=== PATIENT | male | born 1960 | race Caucasian/White ===

== ENCOUNTER → 2019-06-04 | Outpatient (CLI) | payer OTHER ==
[2019-06-04 11:03] LABS: HCT 40.7 % (39.0-53.0); HGB 13.9 gm/dL (13.0-17.5); MCH 31.9 pg (25.0-35.0); MCHC 34.1 g/dL (31.0-37.0); MCV 93.4 fL (80.0-100.0); Platelet Count 347 k/uL (150-450); RBC 4.36 m/uL (4.30-5.90); RDW 12.8 % (11.5-15.5); WBC 8.2 k/uL (3.8-10.6)
[2019-06-04 11:04] LABS: Appearance,Urine Clear (Clear); Bilirubin,Urine Negative (Negative); Blood,Urine Negative (Negative); Color,Urine Yellow; Glucose,Urine (UA) Negative (Negative); Ketones,Urine Negative (Negative); Leukocyte Esterase,Urine Negative (Negative); Nitrite,Urine Negative (Negative); Protein,Urine Negative (Negative); Specific Gravity,Urine 1.015 (1.001-1.035); Urobilinogen,Urine <2.0 mg/dL (<2.0)
[2019-06-04 11:10] LABS: INR 0.9 (<1.2); Partial Thromboplastin Time 24.7 sec (22.0-30.0); Prothrombin Time 9.6 sec (9.0-12.0)
[2019-06-04 11:11] LABS: ALT 22 U/L (21-72); AST 21 U/L (17-59); African American GFR (CKD) >90 (>60 ml/min/1.73 sqM); Albumin 3.8 g/dL (3.5-5.0); Alkaline Phosphatase 84 U/L (38-126); Anion Gap 8 mmol/L; Blood Urea Nitrogen 13 mg/dL (9-20); Calcium 9.1 mg/dL (8.4-10.2); Carbon Dioxide 22 mmol/L (22-30); Chloride 111 mmol/L (98-107); Glucose 103 mg/dL (74-99); Potassium 4.3 mmol/L (3.5-5.1); Sodium 141 mmol/L (137-145); Total Bilirubin 0.5 mg/dL (0.2-1.3); Total Protein 6.9 g/dL (6.3-8.2)
== END ==
LOC: LABPAT 10:17
PROVIDERS: ATTEND Orthopaedic Surgery
DX: Z01.818 Encounter for other preprocedural examination (principal); Z01.812 Encounter for preprocedural laboratory examination; M17.12 Unilateral primary osteoarthritis, left knee
CPT/HCPCS: 80053; 81003; 85027; 85610; 85730; 87070; 93005

== ENCOUNTER 2019-06-15 07:37 | Observation (INO) | payer OTHER ==
[2019-06-07 12:28] VITALS: BMI 42.3
[~2019-06-15 07:37] MED LIST: ACETAMINOPHEN TAB 500 MG TAB PO ONE; DEXAMETHASONE SOD PHOSPHATE 10 MG/ML 1 ML VIAL IV ONE; MELOXICAM 7.5 MG TAB PO ONE; MIDAZOLAM 2 MG/2 ML VIAL IV PRN; ONDANSETRON 4 MG/2 ML VIAL IVP ONE; ROPIVACAINE 246.25 MG, EPINEPHrine 0.5 MG, KETOROLAC 30 MG, cloNIDine HCL/PF 80 MCG, WA... MISCELLANE ONE; SCOPOLAMINE 1.5MG/72HR PATCH TRANSDERM ONE; TRANEXAMIC ACID 1,000 MG in SODIUM CHLORIDE 0.9% 100 ML IVPB ONE; ceFAZolin 3 GM in SODIUM CHLORIDE 0.9% 100 ML IVPB ONE
[2019-06-15] MEDS: LACTATED RINGERS 1,000 ML IV SCH (10:12)
[2019-06-15] MEDS ORDERED: LIDOCAINE 1% INJ 10MG/ML (20 ML MDV) ONE (12:04)
[2019-06-15] MEDS ORDERED: HYDROmorphone (PF) 1 MG/ML ONE (12:04)
[2019-06-15] MEDS ORDERED: TRANEXAMIC ACID 1,000 MG/10 ML VIAL ONE (12:04)
[2019-06-15] MEDS ORDERED: SODIUM CHLORIDE 0.9% 100 ML BAG ONE (12:04)
[2019-06-15] MEDS ORDERED: PROPOFOL 10 MG/ML 20 ML VIAL IV ONE (12:04)
[2019-06-15] MEDS ORDERED: ROCURONIUM BROMIDE 10 MG/ML 10 ML VIAL IV ONE (12:04)
[2019-06-15] MEDS ORDERED: SUCCINYLCHOLINE CHLORIDE 100 MG/5 ML SYR IV ONE (12:04)
[2019-06-15] MEDS ORDERED: NEOSTIGMINE 1 MG/ML 10 ML VIAL ONE (12:04)
[2019-06-15] MEDS ORDERED: MIDAZOLAM 2 MG/2 ML VIAL ONE (12:04)
[2019-06-15] MEDS ORDERED: GLYCOPYRROLATE 0.2 MG/ML 2 ML VIAL ONE (12:04)
[2019-06-15] MEDS ORDERED: fentaNYL (PF) 50 MCG/ML 2 ML AMP ONE (12:04)
[2019-06-15] MEDS ORDERED: ceFAZolin 3,000 MG in SODIUM CHLORIDE 0.9% IRRIGATIO 3,000 ML IRRIGATION ONE (12:39)
--- NOTE | 2019-06-15 13:00 | P.ANPRN ---
Procedure Note - Anesthesia - Nerve Block Performed Left Adductor Canal Date of Procedure: 06/15/19 Procedure Start Time: 10:30 Procedure Stop Time: 11:04 Location of Patient Procedure: PreOp Indication: Acute Post-Operative Pain, Requested by physician (Musa Angeles) Sedation Type: Sedate with meaningful contact maintained Preparation: Sterile Prep, Sterile Dressing Position: Supine Catheter: Indwelling Needle Types: Pajunk Needle Gauge: 21 Technique: Ultrasound Injectate: 0.5% Ropivacaine (see comment for volume) (20cc) Blood Aspirated: No Pain Paresthesia on Injection Noted: No Resistance on Injection: Normal Events: Uneventful and Well Tolerated
[2019-06-15] MEDS ORDERED: HYDROmorphone 1 MG/ML 1 ML SYRINGE IVP PRN (13:35)
[2019-06-15] MEDS ORDERED: hydrOXYzine PAMOATE 25 MG CAP PO PRN (13:35)
[2019-06-15] MEDS ORDERED: NALOXONE 0.4 MG/ML 1 ML VIAL IV PRN (13:35)
[2019-06-15] MEDS ORDERED: HYDROmorphone 0.5 MG/0.5 ML SYRINGE IVP PRN (13:35)
[2019-06-15] MEDS ORDERED: DIAZEPAM 5 MG TAB PO PRN (13:35)
[2019-06-15] MEDS ORDERED: NA PHOS,M-B/NA PHOS,DI-BA 133 ML ENEMA RECTAL PRN (13:35)
[2019-06-15] MEDS ORDERED: MAGNESIUM HYDROXIDE 2,400 MG/10 ML CUP PO PRN (13:35)
[2019-06-15] MEDS ORDERED: BISACODYL 10 MG SUPP RECTAL PRN (13:35)
[2019-06-15] MEDS ORDERED: ONDANSETRON 4 MG/2 ML VIAL IVP PRN (13:35)
[2019-06-15] MEDS ORDERED: LACTATED RINGERS 1,000 ML IV ONE ×2 (13:40→18:10)
--- NOTE | 2019-06-15 14:25 | P.OP ---
Date of Procedure: 06/15/19 Preoperative Diagnosis: Severe osteoarthritis left knee Postoperative Diagnosis: Severe osteoarthritis left knee Procedure(s) Performed: Left total knee arthroplasty Implants: Sánchez and Nephew Journey II CR Oxinium cruciate retaining femoral component size 7, left Sánchez & Nephew Journey left nonporous tibial baseplate size 7 Sánchez & Nephew Journey II, XLPE CR articular insert, size 10 mm, Size 7-8 left Sánchez & Nephew Journey BCS resurfacing oval patellar component, 38 mm All components were cemented using Palacos R bone cement.. The articulation is Oxinium on polyethylene. Anesthesia: GETA Surgeon: Musa Angeles Client Server Developer #1: Denise Landa Estimated Blood Loss (ml): 50 Pathology: other (Bone and cartilage) Condition: stable Disposition: PACU Indications for Procedure: After failure of conservative treatment we discussed the surgical and nonsurgical treatment options at length. Patient wishes to proceed with a total knee arthroplasty. Complications specific to this procedure were discussed at length, including but not limited to infection, bleeding, stiffness, and nerve injury. Patient is aware of all these complications and informed consent was obtained Operative Findings: The operative findings are consistent with severe osteoarthritis of the left knee Description of Procedure: Patient was seen in the preoperative area consent was reviewed and operative site was marked with a skin marker. An adductor canal pain catheter was placed by anesthesia in the preoperative area. Patient was then brought to the operating room and given preoperative antibiotics intravenously. A general anesthetic was administered by the anesthesia department. A tourniquet was placed on the upper thigh and the lower extremity was prepped and draped in usual sterile fashion. A gram of transexamic acid was given. A universal timeout was then performed which confirmed the patient's name, surgical site, ALLERGIES, and consent. The lower extremity was then exsanguinated and tourniquet was inflated to 250 mmHg. A standard and anterior midline approach to the knee was performed. The skin and subcutaneous tissue was dissected down to the patellar tendon. A medial parapatellar arthrotomy was then performed. The knee was then extended, the patellar was everted, and the knee was again flexed. Anterior horns of both menisci were excised, and a release was performed to the posterior medial aspect of the knee. On gross visual inspection, there was complete loss of articular cartilage in the medial and patellofemoral joint spaces. There was also significant cartilage damage in the lateral compartment. There were multiple periarticular osteophytes which were then removed with a Ronguer. The femoral canal was then opened with the appropriate drill, and the intramedullary femoral cutting guide was then placed and set for 5 of valgus. The distal femoral cutting block was then pinned in place, and the distal femur was then cut. The cutting block was then removed and the cut was checked for flatness. Next, the sizing guide was then placed and set for 3 external rotation based off of the epicondylar axis and Whitesides line. After the femur was sized, the appropriate 4-in-1 cutting block was then pinned in place. The anterior condyles were cut without notching. The posterior and chamfer cuts were performed while protecting the collateral ligaments. The cutting block was then removed, and the femoral canal was plugged with autologous bone. Attention was then directed to the tibia. The remaining ACL was removed with a Ronguer, and the tibia was then gently subluxed forward with a large bent knee retractor. Any remaining menisci was excised. The posterior lateral corner was cauterized in order to cauterize the lateral geniculate artery. The extra medullary tibial cutting guide was then placed, set for the appropriate rotation, slope, and depth of resection. The proximal tibia cutting guide was then pinned in place. Proximal tibia was then cut and sized. Next trials were then placed with the appropriate-sized insert. The knee was able to fully extend and flex to 130 and was stable throughout all range of motion. The knee was then extended, patella everted. Patella was then measured, and then using an osteotomy guide, the patella was cut at the appropriate level. The patella was then measured and drilled and the patella trial was then placed. The knee was then taken through range of motion with the patella trial and the patella tracked normally. The knee was then extended patella trial was then removed and the patella was everted. Knee was then flexed and lug holes were drilled through the femoral trial and the femoral trial was then removed. The tibial was then exposed, and the tibial broach guide was then pinned in place after it was set for the appropriate rotation to allow for the most coverage without overhang. The tibia was then reamed and broached. The cut surfaces of bone were then irrigated with pulsatile lavage. The posterior structures were injected with the ropivacaine solution. The knee was also irrigated with Irrisept solution. The components were then opened, the cement was mixed, and the components were then cemented in place. The cement was allowed to harden with the knee in full extension. While the cement was hardening, the remaining soft tissues were then injected with a ropivacaine solution, which consisted of 246.25 mg of ropivacaine, 0.5 mg of epinephrine, 30 mg of Toradol, 80 g of clonidine, and 48.45 mL of sterile water, for a total of 100 mL of fluid injected. After the cemented hardened. The tourniquet was released, and hemostasis was obtained. A second gram of transexamic acid was given. The knee was again irrigated. The knee was again taken through range of motion and found to be stable throughout all range of motion of 0-130, and the patella tracked normally. The fascia was then closed with #2 strata fix suture. The subcutaneous tissue was closed with 3-0 Vicryl and 3-0 strata fix. Dermabond glue was used for the skin and placed with the knee in flexion. The patient was placed in a sterile silver dressing. Patient was then transferred to recovery room in stable condition. The budget assistant NOEMI Ashford was required due the complexity surgery and the need for a skilled secretary administrative assistant. She assisted in positioning, draping, retraction, and closure of the wound.
[2019-06-15] MEDS: HYDROmorphone 0.5 MG/0.5 ML SYRINGE IVP PRN ×5 (14:28→21:41)
[2019-06-15] MEDS ORDERED: ROPIVACAINE 0.2%-NS ON-Q PUMP 1,090 MG, EMPTY PAIN BALL 1 EACH MISCELLANE PRN (14:42)
--- NOTE | 2019-06-15 14:43 | XR ---
Limited left knee HISTORY: Status post left knee arthroplasty 2 views of left knee There is overlying artifact. Patient is status post left knee arthroplasty. There is anatomic alignme nt. Lucency in the soft tissues is compatible with postop state. Small ossific densities about the kn ee are likely postoperative. IMPRESSION: Orthopedic follow-up.
[2019-06-15] MEDS: SODIUM CHLORIDE 0.9% 1,000 ML IV SCH (18:12)
[2019-06-15] MEDS ORDERED: CLOTRIMAZOLE 1% CREAM 15 GM TUBE TOPICAL PRN (19:24)
[2019-06-15] MEDS ORDERED: amLODIPine 5 MG TAB PO PRN (19:24)
[2019-06-15] MEDS ORDERED: CROMOLYN 4% BOTH EYES PRN (19:24)
[2019-06-15] MEDS ORDERED: FLUTICASONE 50MCG/SPRAY NASAL 16GM EA NOSTRIL PRN (19:24)
[2019-06-15] MEDS: ceFAZolin 3 GM in SODIUM CHLORIDE 0.9% 100 ML IVPB SCH (19:40)
[2019-06-15] MEDS: oxyCODONE-APAP 10-325MG 1 EACH TAB PO PRN (19:47)
[2019-06-15] MEDS ORDERED: SENNOSIDES-DOCUSATE SODIUM 1 EACH TAB PO SCH (21:00)
[2019-06-15] MEDS: GABAPENTIN 400 MG CAP PO SCH (21:41)
--- NOTE | 2019-06-16 00:30 | P.CONS ---
History of Present Illness - Reason for Consult Consult date: 06/16/19 medical management postoperatively Requesting physician: Musa Angeles - Chief Complaint scheduled left total knee arthroplasty - History of Present Illness 58-year-old male with past medical history of hypertension prediabetes obstructive sleep apnea. Patient presented to the hospital for scheduled left total knee arthroplasty due to severe degenerative arthritis failed conservative therapy. Patient tolerated procedure well he seen in the postoperative day 0. No observed immediate postoperative complications. Patient tolerated by mouth intake. Passing gases. He is able to move his left lower extremity with minimal amount of pain. Denies any fevers chills any coughing or trouble breathing or chest pain. Patient passing urine no issues. Patient is very pleasant he was counseled regarding pursuing treatment of obstructive sleep apnea. Patient used to be on metformin in the past for diabetes however he stopped that since he lost weight. Patient agreeable to start insulin sliding scale while hospitalized to optimize blood sugar control which will help with wound healing Review of Systems Pertinent positives as noted in HPI. All other systems were reviewed and are negative Past Medical History Past Medical History: Asthma, Diabetes Mellitus, Hypertension, Musculoskeletal Disorder, Osteoarthritis (OA), Sleep Apnea/CPAP/BIPAP Additional Past Medical History / Comment(s): BLOOD CLOT RT ARM AFTER A BEE STING 2017, TOOK WARFARIN FOR 1 1/2 WEEKS. "PRE-DIABETIC" 2008 WHEN AT [facility]. LT KNEE PAIN; 3 TORN TENDONS IN LT SHOULDER; JOINTS SWOLLEN, POSS RA. CHRONIC BACK PAIN. USED CPAP IN PAST. History of Any Multi-Drug Resistant Organisms: None Reported Past Surgical History: Back Surgery, Tonsillectomy Additional Past Surgical History / Comment(s): CERVICAL FUSION, LUMBAR PAIN; PAIN INJECTIONS IN BACK, NEXT ON 06/11/19. COLONOSCOPY. Past Anesthesia/Blood Transfusion Reactions: No Reported Reaction Smoking Status: Former smoker - Past Family History Mother Family Medical History: No Reported History Medications and Allergies Home Medications Medication Instructions Recorded Confirmed Type Albuterol Inhaler [Ventolin Hfa 1 - 2 puff INHALATION RT-Q6H PRN 06/07/19 06/07/19 History Inhaler] Celecoxib [CeleBREX] 200 mg PO DAILY 06/07/19 06/07/19 History Cholecalciferol [Vitamin D3 (25 1,000 unit PO DAILY 06/07/19 06/07/19 History Mcg = 1000 Iu)] Chromolyn Sodium Opthal 4% 1 drop BOTH EYES BID PRN 06/07/19 History Clotrimazole Cream [Lotrimin Cream] 1 applic TOPICAL BID PRN 06/07/19 06/07/19 History EPINEPHrine (Auto Inject) [Epipen] 0.3 mg IM ONCE PRN 06/07/19 06/15/19 History Fluticasone Nasal [place] [Flonase 2 spr EA NOSTRIL BID PRN 06/07/19 06/07/19 History Nasal [place]] Gabapentin [Neurontin] 1,200 mg PO TID 06/07/19 06/07/19 History Loratadine [Claritin] 10 mg PO DAILY 06/07/19 06/07/19 History Losartan Potassium [Cozaar] 100 mg PO DAILY 06/07/19 06/07/19 History Vitamin B Complex 1 each PO DAILY 06/07/19 06/07/19 History amLODIPine [Norvasc] 5 mg PO HS PRN 06/07/19 06/07/19 History oxyCODONE-APAP 10-325MG [Percocet 1 tab PO BID PRN 06/07/19 06/07/19 History 10-325 mg] Allergies Allergy/AdvReac Type Severity Reaction Status Date / Time Penicillins Allergy Rash/Hives Verified 06/15/19 09:59 Physical Exam Vitals: Vital Signs Temp Pulse Pulse Resp BP Pulse Ox 06/15/19 18:09 82 16 132/75 97 06/15/19 17:46 82 16 119/55 97 06/15/19 17:30 78 16 128/69 97 06/15/19 17:00 78 16 132/59 97 06/15/19 16:45 76 16 114/69 97 06/15/19 16:33 76 16 127/71 95 06/15/19 16:15 83 16 116/67 95 06/15/19 16:00 79 16 108/70 95 06/15/19 15:45 80 16 124/77 95 06/15/19 15:31 76 16 153/78 95 06/15/19 15:15 74 16 130/60 95 06/15/19 15:03 74 16 135/70 95 06/15/19 14:48 83 16 140/72 95 06/15/19 14:32 74 16 138/74 95 06/15/19 14:16 97.4 F L 88 16 114/62 95 06/15/19 11:05 70 17 111/55 98 06/15/19 10:03 96.9 F L 72 17 142/62 98 Intake and Output 06/15/19 06/15/19 06/15/19 06:59 14:59 22:59 Intake Total 2050 Output Total 50 Balance 2000 Intake: IV 2050 Output: Estimated Blood Loss 50 Other: Weight 120.4 kg Constitutional: No acute distress, conversant, pleasant Eyes: Anicteric sclerae, moist conjunctiva, no lid-lag Pupils equal round reactive to light ENMT: NC/AT Oropharynx clear, no erythema, orexudates Neck: Supple, FROM, no masses, or JVD No carotid bruits No thyromegaly Lungs: Clear to auscultation Clear to percussion Normal respiratory effort, no accessory muscle use Cardiovascular: Heart regular in rate and rhythm, No murmurs, gallops, or rubs No peripheral edema Abdominal: Soft Nontender, no guarding, rebound or rigidity Abdomen moving with respiration Normoactive bowel sounds No hepatomegaly, No splenomegaly No palpable mass No abdominal wall hernia noted Skin: Normal temperature, tone, texture, turgor No induration No subcutaneous nodules No rash, lesions No ulcers Extremities: surgical dressing over the left lower extremity, seems clean and intact and dry. Pain pump in placeFor nerve block No digital cyanosis No clubbing Pedal pulses intact and symmetrical Radial pulses intact and symmetrical No calf tenderness Psychiatric: Alert and oriented to person, place and time Appropriate affect fair judgement Neuro Muscles Strength 5/5 in all 4 extremities my limited exam over the left lower extremity due to recent surgery Sensation to light touch grossly present throughout Cranial nerves II-XII grossly intact No focal sensory deficits Lymphatics: no palpable cervical or supraclavicular , or inguinal lymph nodes Assessment and Plan Assessment: 58-year-old male with history of obstructive sleep apnea, hypertension, prediabetes. Patient admitted for scheduled left total knee arthroplasty tolerated procedure well patient seen in the postoperative day 0. No observed immediate postoperative complications medicine was consulted for management of his hypertension and diabetes. Plan: degenerative joint disease or osteoarthritis of the left knee status post left total knee arthroplasty postoperative day 0 Pain control and DVT prophylaxis management per orthopedics Prediabetes, insulin sliding scale Hypertension, continue home blood pressure meds Obstructive sleep apnea, encouraged patient to pursue treatment as an outpatient currently he reports stopping treatment since 2010 Follow-up morning labs CBC and basic metabolic panel Thank you for allowing us to participate in the care of this patient. Do not hesitate to contact us with questions. Someone can be reached from the [facility] hospitalist group at all hours of the day at [phone].
[2019-06-16] MEDS: HYDROmorphone 0.5 MG/0.5 ML SYRINGE IVP PRN ×2 (01:09→05:00)
[2019-06-16] MEDS: oxyCODONE-APAP 10-325MG 1 EACH TAB PO PRN ×3 (02:01→12:54)
[2019-06-16] MEDS: SODIUM CHLORIDE 0.9% 1,000 ML IV SCH (04:43)
[2019-06-16] MEDS: ceFAZolin 3 GM in SODIUM CHLORIDE 0.9% 100 ML IVPB SCH (04:50)
[2019-06-16 07:31] LABS: Glucose,Whole Blood 107 mg/dL (75-99)
[2019-06-16] MEDS: INSULIN ASPART (NovoLOG) 100 UNIT/ML VIAL SQ SCH ×2 (07:38→12:49)
[2019-06-16] MEDS: GABAPENTIN 400 MG CAP PO SCH ×2 (07:42→15:05)
[2019-06-16 07:49] LABS: Basophils % (A) 0 %; Eosinophils # (A) 0.1 k/uL (0-0.7); Eosinophils % (A) 1 %; HCT 42.4 % (39.0-53.0); HGB 13.4 gm/dL (13.0-17.5); Lymphocytes # (A) 1.7 k/uL (1.0-4.8); Lymphocytes % (A) 13 %; MCH 30.2 pg (25.0-35.0); MCHC 31.5 g/dL (31.0-37.0); MCV 95.8 fL (80.0-100.0); Mean Platelet Volume 6.2; Monocytes % (A) 8 %; Neutrophils # (A) 9.8 k/uL (1.3-7.7); Neutrophils % (A) 76 %; Platelet Count 320 k/uL (150-450); RBC 4.42 m/uL (4.30-5.90); RDW 12.9 % (11.5-15.5); WBC 12.8 k/uL (3.8-10.6)
[2019-06-16 07:54] LABS: African American GFR (CKD) >90 (>60 ml/min/1.73 sqM); Anion Gap 11 mmol/L; Blood Urea Nitrogen 14 mg/dL (9-20); Calcium 8.6 mg/dL (8.4-10.2); Carbon Dioxide 21 mmol/L (22-30); Chloride 107 mmol/L (98-107); Glucose 102 mg/dL (74-99); Potassium 4.3 mmol/L (3.5-5.1); Sodium 139 mmol/L (137-145)
[2019-06-16 08:36] VITALS: PULSE 81
[2019-06-16] MEDS ORDERED: APIXABAN 2.5 MG TABLET PO SCH (09:00)
[2019-06-16] MEDS ORDERED: LORATADINE 10 MG TAB PO SCH (09:00)
[2019-06-16] MEDS ORDERED: LOSARTAN 50 MG TAB PO SCH (09:00)
--- NOTE | 2019-06-16 09:03 | P.PN ---
Progress Note - Text Progress Note Date: 06/16/19 Postoperative day # 1 status post total knee arthroplasty, under spinal anesthesia, and adductor canal catheter placed for postoperative analgesia, currently at ropivacaine 0.2% 8 mL per hour and continuous infusion, visual analogue scale is 3/10, patient using oral pain medication for breakthrough pain. Assessment and plan= Acute postoperative pain, adductor canal catheter for pain control, pain is well controlled we'll continue the same management.
--- NOTE | 2019-06-16 09:19 | P.DS ---
Providers Date of admission: 06/16/19 01:16 Expected date of discharge: 06/16/19 Attending physician: Musa Angeles Consults: 06/15/19 13:35 Consult Physician Routine Consulting Provider: Bhargavi Pate Consult Reason/Comments: medical management Do you want consulting provider notified?: Yes Primary care physician: Musa Williamsonler - Discharge Diagnosis(es) (1) Osteoarthritis of left knee Current Visit: Yes Status: Acute (2) S/P total knee arthroplasty Current Visit: Yes Status: Acute Hospital Course: This is a 58-year-old male with known history of degenerative arthritis of the left knee. The patient presents for evaluation. After discussion and consideration patient elects to proceed with total knee arthroplasty. The patient is seen preoperatively by Dr. Angeles and medically cleared for surgery by their primary care physician. Patient is admitted to [facility] on 06/15/2019 for total knee arthroplasty. The procedures performed without complication or sequelae. The patient is doing well postoperatively. Labs and vital signs are stable on day of discharge. On day of discharge patient's knee incision is healing well. There is minimal erythema. There is no drainage noted at this time. There is minimal soft tissue swelling to the knee. Patient has full foot and ankle motion without difficulty or pain. Calf is soft and nontender to palpation. Neurovascular status to the left lower extremity is intact. Patient is discharged home in good condition. Patient has a pain contract with another physician who will be managing postoperative pain. Please see med rec for accurate list of home medications. Plan - Discharge Summary Discharge Rx Participant: No New Discharge Prescriptions: New Apixaban [Eliquis] 2.5 mg PO BID #24 tab No Action Vitamin B Complex 1 cap PO DAILY Cholecalciferol [Vitamin D3 (25 Mcg = 1000 Iu)] 1,000 unit PO DAILY oxyCODONE-APAP 10-325MG [Percocet 10-325 mg] 1 tab PO BID PRN PRN Reason: Pain amLODIPine [Norvasc] 5 mg PO HS PRN PRN Reason: BLOOD PRESSURE >140 Fluticasone Nasal [place] [Flonase Nasal [place]] 2 spr EA NOSTRIL BID PRN PRN Reason: ALLERGIES Losartan Potassium [Cozaar] 100 mg PO DAILY Loratadine [Claritin] 10 mg PO DAILY Celecoxib [CeleBREX] 200 mg PO DAILY Gabapentin [Neurontin] 1,200 mg PO TID Chromolyn Sodium Opthal 4% 1 drop BOTH EYES BID PRN PRN Reason: Eye Irritation Clotrimazole Cream [Lotrimin Cream] 1 applic TOPICAL BID PRN PRN Reason: ATHLETE'S FOOT EPINEPHrine (Auto Inject) [Epipen] 0.3 mg IM ONCE PRN PRN Reason: Anaphylaxis Albuterol Inhaler [Ventolin Hfa Inhaler] 1 - 2 puff INHALATION RT-Q6H PRN PRN Reason: Shortness Of Breath Discharge Medication List Albuterol Inhaler [Ventolin Hfa Inhaler] 1 - 2 puff INHALATION RT-Q6H PRN 06/07/19 [History] Celecoxib [CeleBREX] 200 mg PO DAILY 06/07/19 [History] Cholecalciferol [Vitamin D3 (25 Mcg = 1000 Iu)] 1,000 unit PO DAILY 06/07/19 [History] Chromolyn Sodium Opthal 4% 1 drop BOTH EYES BID PRN 06/07/19 [History] Clotrimazole Cream [Lotrimin Cream] 1 applic TOPICAL BID PRN 06/07/19 [History] EPINEPHrine (Auto Inject) [Epipen] 0.3 mg IM ONCE PRN 06/07/19 [History] Fluticasone Nasal [place] [Flonase Nasal [place]] 2 spr EA NOSTRIL BID PRN 06/07/19 [History] Gabapentin [Neurontin] 1,200 mg PO TID 06/07/19 [History] Loratadine [Claritin] 10 mg PO DAILY 06/07/19 [History] Losartan Potassium [Cozaar] 100 mg PO DAILY 06/07/19 [History] Vitamin B Complex 1 cap PO DAILY 06/07/19 [History] amLODIPine [Norvasc] 5 mg PO HS PRN 06/07/19 [History] oxyCODONE-APAP 10-325MG [Percocet 10-325 mg] 1 tab PO BID PRN 06/07/19 [History] Apixaban [Eliquis] 2.5 mg PO BID #24 tab 06/16/19 [Rx] Follow up Appointment(s)/Referral(s): Musa Angeles DO [Doctor of Osteopathic Medicine] - 2 Weeks Ambulatory/Diagnostic Orders: Continuous Passive Motion (CPM) Machine [DME.AMB1] Time Frame: 3 Weeks, Location: None Selected Activity/Diet/Wound Care/Special Instructions: Weightbearing as tolerated with a walker. CPM 5-6h daily. Leave dressing intact. May be removed by home care nurse or by patient in 10 days. May shower with dressing on. Please follow up with [facility] and call with any questions or concerns, . Discharge Disposition: HOME WITH HOME HEALTH SERVICES
[2019-06-16 11:59] LABS: Glucose,Whole Blood 123 mg/dL (75-99)
--- NOTE | 2019-06-16 12:00 | P.PN ---
Subjective Progress Note Date: 06/16/19 Principal diagnosis: knee pain Patient is a 58-year-old male past medical history of hypertension, prediabetes, and obstructive sleep apnea who presented to the hospital for elective left total knee arthroplasty. He tolerated procedure well without any immediate postoperative complications. Patient seen and examined at bedside. He complains of pain in his left knee. He denies any chest pain, shortness breath, nausea, or vomiting. He is passing gas but has not had a bowel movement. Objective - Vital Signs Vital signs: Vital Signs Temp 98.0 F 06/16/19 07:00 Pulse 81 06/16/19 07:00 Resp 16 06/16/19 07:00 BP 118/78 06/16/19 07:00 Pulse Ox 98 06/16/19 07:00 Intake & Output 06/15/19 06/16/19 06/16/19 18:59 06:59 18:59 Intake Total 2050 1060 222 Output Total 50 450 320 Balance 2000 610 -98 Weight 120.4 kg Intake: IV 2050 Intake, IV Titration 820 Amount Sodium Chloride 0.9% 1, 720 000 ml @ 70 mls/hr IV . [id number] VENICE Rx#:[id number] ceFAZolin 3 gm In Sodium 100 Chloride 0.9% 100 ml @ 200 mls/hr IVPB Q8H VENICE Rx#:[id number] Oral 240 222 Output: Urine 450 320 Estimated Blood Loss 50 Other: Voiding Method Toilet Toilet # Voids 1 - Exam General: non toxic, no distress, appears at stated age Derm: warm, dry Head: atraumatic, normocephalic, symmetric Eyes: EOMI, no lid lag, anicteric sclera Mouth: no lip lesion, mucus membranes moist Cardiovascular: S1S2 reg, no murmur, positive posterior tibial pulse bilateral, Lungs: Decreased breath sounds bilateral, no rhonchi, no rales , no accessory muscle use Abdominal: soft, nontender to palpation, no guarding, no appreciable organomegaly Ext: Dressing in place over left knee, no gross muscle atrophy, 1+ edema left lower extremity, no contractures Neuro: CN II-XI grossly intact, no focal neuro deficits Psych: Alert, oriented, appropriate affect - Labs CBC & Chem 7: 06/16/19 07:18 06/16/19 07:18 Labs: Abnormal Lab Results - Last 24 Hours (Table) 06/16/19 06/16/19 06/16/19 Range/Units 07:09 07:18 07:18 WBC 12.8 H (3.8-10.6) k/uL Neutrophils # 9.8 H (1.3-7.7) k/uL Carbon Dioxide 21 L (22-30) mmol/L Glucose 102 H (74-99) mg/dL POC Glucose (mg/dL) 107 H (75-99) mg/dL Assessment and Plan Assessment: Patient is a 58-year-old male status post left total knee arthroplasty Prediabetes -Blood sugars well controlled -Continue diet control Hypertension, controlled -Norvasc, losartan Obstructive sleep apnea -Outpatient follow-up Morbid obesity with BMI 41.6 -Structured outpatient weight loss Medically optimized for discharge to the discretion of orthopedic surgery
[2019-06-16] MEDS: LACTATED RINGERS 1,000 ML IV SCH (14:20)
[2019-06-16 15:41] VITALS: BP 165/83; RESP 15; TEMP 98.3
[2019-06-16 16:55] LABS: Hemoglobin A1C 5.3 % (4.0-6.0)
== END 2019-06-16 16:25 | disposition home health service (06) ==
LOC: OR 07:37 → EDSTATUS 11:30 → 4SSUR 14:22 → OR 06-16 01:15 → 4SSUR 06-16 01:16
PROVIDERS: ADMIT Orthopaedic Surgery; ATTEND Orthopaedic Surgery
DX: M17.12 Unilateral primary osteoarthritis, left knee (principal); I10 Essential (primary) hypertension; G47.33 Obstructive sleep apnea (adult) (pediatric); R73.03 Prediabetes; J44.9 Chronic obstructive pulmonary disease, unspecified; G89.29 Other chronic pain; M54.9 Dorsalgia, unspecified; Z98.1 Arthrodesis status; Z88.0 Allergy status to penicillin; F17.200 Nicotine dependence, unspecified, uncomplicated; E66.01 Morbid (severe) obesity due to excess calories; Z68.41 Body mass index [BMI] 40.0-44.9, adult; Z79.1 Long term (current) use of non-steroidal anti-inflammatories (NSAID); Z79.899 Other long term (current) drug therapy; Z79.891 Long term (current) use of opiate analgesic; Z82.49 Family history of ischemic heart disease and other diseases of the circulatory system; Z83.3 Family history of diabetes mellitus
CPT/HCPCS: 27447; 64448; 97161; 97165; 80048; 85025; 88300; 83036; 73560; G0378; C1713; C1776; C1772; J2250; J0171; J1100; J2710; J0690 ×3; J2405; J2001; J3010; J1885; J1170 ×3; J2795 ×2; J0330; J2704; J0735

== ENCOUNTER 2022-09-02 08:40 | Day surgery (SDC) | payer OTHER ==
[2022-08-29 10:18] VITALS: BMI 37.5
[~2022-09-02 08:40] MED LIST changes: -ACETAMINOPHEN TAB 500 MG TAB PO ONE; +ALPRAZolam 0.25 MG TAB PO PRN; +ALPRAZolam 0.5 MG TAB PO PRN; +ASPIRIN 325 MG TAB PO STA; -DEXAMETHASONE SOD PHOSPHATE 10 MG/ML 1 ML VIAL IV ONE; -MELOXICAM 7.5 MG TAB PO ONE; -MIDAZOLAM 2 MG/2 ML VIAL IV PRN; +NITROGLYCERIN SL TABS 0.4 MG TAB SUBLINGUAL PRN; -ONDANSETRON 4 MG/2 ML VIAL IVP ONE; -ROPIVACAINE 246.25 MG, EPINEPHrine 0.5 MG, KETOROLAC 30 MG, cloNIDine HCL/PF 80 MCG, WA... MISCELLANE ONE; -SCOPOLAMINE 1.5MG/72HR PATCH TRANSDERM ONE; +SODIUM CHLORIDE 0.9% 1,000 ML in EMPTY BAG 1 BAG IV SCH; -TRANEXAMIC ACID 1,000 MG in SODIUM CHLORIDE 0.9% 100 ML IVPB ONE; -ceFAZolin 3 GM in SODIUM CHLORIDE 0.9% 100 ML IVPB ONE
[2022-09-02] MEDS ORDERED: SODIUM CHLORIDE 0.9% 1,000 ML IV ONE (08:56)
[2022-09-02 09:20] VITALS: RESP 16; TEMP 97.2
[2022-09-02 10:28] LABS: Basophils % (A) 0 %; Eosinophils # (A) 0.2 k/uL (0-0.7); Eosinophils % (A) 2 %; HCT 41.4 % (39.0-53.0); HGB 14.7 gm/dL (13.0-17.5); Lymphocytes # (A) 1.5 k/uL (1.0-4.8); Lymphocytes % (A) 15 %; MCH 32.4 pg (25.0-35.0); MCHC 35.4 g/dL (31.0-37.0); MCV 91.3 fL (80.0-100.0); Mean Platelet Volume 7.1; Monocytes # (A) 0.6 k/uL (0-1.0); Monocytes % (A) 6 %; Neutrophils # (A) 7.6 k/uL (1.3-7.7); Neutrophils % (A) 76 %; Platelet Count 346 k/uL (150-450); RBC 4.54 m/uL (4.30-5.90); RDW 12.3 % (11.5-15.5); WBC 10.1 k/uL (3.8-10.6)
[2022-09-02 10:57] LABS: African American GFR (CKD) >90 (>60 ml/min/1.73 sqM); Anion Gap 8 mmol/L; Blood Urea Nitrogen 17 mg/dL (9-20); Calcium 8.8 mg/dL (8.4-10.2); Carbon Dioxide 28 mmol/L (22-30); Chloride 100 mmol/L (98-107); Glucose 93 mg/dL (74-99); Non-African American GFR(CKD) >90 (>60 ml/min/1.73 sqM); Potassium 4.4 mmol/L (3.5-5.1); Sodium 136 mmol/L (137-145)
[2022-09-02] MEDS ORDERED: fentaNYL (PF) 50 MCG/1 ML VIAL IV ONE (11:00)
[2022-09-02] MEDS: MIDAZOLAM 2 MG/2 ML VIAL IV ONE ×2 (11:00→11:38)
[2022-09-02] MEDS ORDERED: LIDOCAINE 1% INJ 10MG/ML (5 ML VIAL-PF) SQ ONE (11:02)
[2022-09-02] MEDS ORDERED: VERAPAMIL SYRINGE (5 MG/10 ML) INTRAARTER ONE (11:05)
[2022-09-02] MEDS ORDERED: HEPARIN SODIUM 1,000 UN/ML (10ML VL) IV ONE (11:07)
[2022-09-02] MEDS ORDERED: IOPAMIDOL-370 125ML BTL INJ ONE (11:38)
[2022-09-02] MEDS ORDERED: RX INFO: IV CONTRAST WAS GIVEN 1 EACH MISC MISCELLANE PRN (11:41)
[2022-09-02] MEDS ORDERED: SODIUM CHLORIDE 0.9% 1,000 ML IV SCH (11:45)
[2022-09-02 20:42] VITALS: BP 139/65; PULSE 65
--- NOTE | 2022-09-02 23:04 | CC ---
CARDIAC CATHETERIZATION REPORT INDICATIONS: Chest pain with abnormal stress test in a patient who is to undergo surgery on his knee. PROCEDURE NOTE: After obtaining informed consent, left heart catheterization and coronary angiogram were performed via the right radial artery. The patient received moderate conscious sedation, total sedation time was 31 minutes. Right radial artery access was obtained using modified Seldinger technique, and a 6- [place] sheath was placed. Catheters and wires were floated into the ascending aorta under fluoroscopic guidance. The right coronary artery was engaged using a size 4 Mona catheter after we were unsuccessful with size 3-1/2 Lissette catheter. Left coronary artery was engaged using a 3- 1/2 Mona catheter. Left ventricular pressures were obtained using a pigtail catheter. The patient tolerated the procedure well without any obvious immediate complications. He received 5 mg of verapamil and 5000 units of heparin per protocol. A TR band was placed at the end of the procedure per protocol; 5 mg of verapamil and 5000 units of heparin were given per protocol. FINDINGS: 1. Hemodynamics: Left ventricular end-diastolic pressure is 6 mm, there is no significant gradient across the aortic valve. 2. Left Ventriculogram: Left ventriculogram is not performed. 3. Angiographic Data: a.Right coronary artery: Right coronary artery is a nondominant vessel and is free of significant stenosis. b.Left main coronary artery is a normal-sized vessel and is free of stenosis, divides into left anterior descending coronary artery and circumflex coronary artery. Circumflex coronary artery is a large dominant vessel and is free of significant stenosis. LAD and its branches are free of significant disease. CONCLUSIONS: 1. Normal coronary arteries. 2. Normal left ventricular end-diastolic pressure. PLAN: Patient's stress test is a false-positive stress test and chest discomfort is probably noncardiac in origin. He is an acceptable risk candidate for surgery under anesthesia. MMODL / IJN: [id number] /
--- NOTE | 2022-09-02 23:19 | LTR ---
Dear Dr. Angeles: Yayo Acevedo is a 61-year-old gentleman who was referred to us for preop cardiac evaluation because of an abnormal stress test. He is to undergo knee surgery by you on September 05. He underwent a coronary angiogram that revealed normal coronary arteries. He is an acceptable risk candidate for surgery and anesthesia. Thank you for giving us the privilege to participate with this pleasant gentleman. MMLESLIE / KALINAN: [phone] /
== END 2022-09-02 16:11 | disposition home or self-care (01) ==
LOC: CATHCVL 08:40
PROVIDERS: ATTEND Internal Medicine Cardiovascular Disease
DX: R07.9 Chest pain, unspecified (principal); R00.2 Palpitations; I10 Essential (primary) hypertension; R94.39 Abnormal result of other cardiovascular function study
CPT/HCPCS: 93458; 80048; 85025; J2250; J2001; J1644; Q9967

== ENCOUNTER → 2023-08-25 | Outpatient (CLI) | payer OTHER ==
[2023-08-25 16:55] LABS: HCT 40.9 % (39.6-50.0); HGB 13.9 d/dL (13.0-17.0); MCH 31.3 pg (27.0-32.0); MCV 92.1 FL (80.0-97.0); NRBC Per 100 WBC 0 X 10*3/uL (0.00-0.01); Platelet Count 252 X 10*3/uL (140-440); RBC 4.44 X 10*6/uL (4.40-5.60); RDW 11.5 % (11.5-14.5); WBC 4.36 X 10*3/uL (4.50-10.00)
[2023-08-25 17:55] LABS: ALT 32 U/L (10-49); AST 57 U/L (14-35); Albumin 4.2 d/dL (3.8-4.9); Albumin/Globulin Ratio 1.62 Ratio (1.60-3.17); Alkaline Phosphatase 71 U/L (41-126); Blood Urea Nitrogen 11.7 mg/dL (9.0-27.0); Calcium 9.2 mg/dL (8.7-10.3); Carbon Dioxide 22.3 mmol/L (21.6-31.8); Chloride 102 mmol/L (96-109); Globulin 2.6 d/dL (1.6-3.3); Glucose 111 mg/dL (70-110); Potassium 4.6 mmol/L (3.5-5.5); Sodium 138 mmol/L (135-145); Total Bilirubin 0.5 mg/dL (0.3-1.2); Total Protein 6.8 d/dL (6.2-8.2)
[2023-08-26 00:01] LABS: Appearance,Urine Clear (Clear); Bilirubin,Urine Negative (Negative); Blood,Urine Negative (Negative); Color,Urine Other; Ketones,Urine Negative (Negative); Nitrite,Urine Negative (Negative); Specific Gravity,Urine <=1.005 (1.001-1.030); Urobilinogen,Urine 0.2 (>1.0)
== END | disposition home or self-care (01) ==
LOC: LABPAT 09:31
PROVIDERS: ATTEND Orthopaedic Surgery
DX: Z01.812 Encounter for preprocedural laboratory examination (principal); M17.11 Unilateral primary osteoarthritis, right knee
CPT/HCPCS: 80053; 81003; 85027; 87070

== ENCOUNTER 2023-09-23 11:03 | Day surgery (SDC) | payer OTHER ==
[~2023-09-23 11:03] MED LIST changes: +ACETAMINOPHEN TAB 500 MG TAB PO PRN; -ALPRAZolam 0.25 MG TAB PO PRN; -ALPRAZolam 0.5 MG TAB PO PRN; -ASPIRIN 325 MG TAB PO STA; +GABAPENTIN 300 MG CAP PO PRN; +MELOXICAM 7.5 MG TAB PO PRN; -NITROGLYCERIN SL TABS 0.4 MG TAB SUBLINGUAL PRN; -SODIUM CHLORIDE 0.9% 1,000 ML in EMPTY BAG 1 BAG IV SCH; +TRANEXAMIC 1,000 MG/100ML-NACL 1,000 MG in SALINE 1 100ML.BAG IVPB PRN
[2023-09-23] MEDS ORDERED: ONDANSETRON 4 MG/2 ML VIAL ONE (11:59)
[2023-09-23] MEDS: LACTATED RINGERS 1,000 ML IV SCH (12:06)
[2023-09-23 12:09] LABS: Glucose,Whole Blood 104 mg/dL (70-110)
[2023-09-23] MEDS ORDERED: DEXAMETHASONE SOD PHOSPHATE 4 MG/ML 1 ML VIAL IV ONE (12:09)
[2023-09-23] MEDS ORDERED: ONDANSETRON 4 MG/2 ML VIAL IVP ONE (12:09)
[2023-09-23] MEDS ORDERED: MIDAZOLAM 2 MG/2 ML VIAL IVP ONE ×2 (12:16→12:28)
[2023-09-23] MEDS ORDERED: fentaNYL (PF) 50 MCG/ML 2 ML AMP IVP ONE ×2 (12:16→15:36)
--- NOTE | 2023-09-23 12:54 | P.ANPRN ---
Procedure Note - Anesthesia - Nerve Block Performed Right Adductor Canal Infusion Time Out Performed: Yes (1216) Date of Procedure: 09/23/23 Procedure Start Time: 12:17 Procedure Stop Time: : Location of Patient: PreOp Indication: Acute Post-Operative Pain, Requested by Surgeon Specifically requested for management of pain by DrTai: Musa Angeles Sedation Type: Sedate with meaningful contact maintained Preparation: Sterile Prep Position: Supine Catheter Depth at Skin (cm): 8 Catheter: Indwelling Needle Types: Pajunk Needle Gauge: 18, 21 Ultrasound used to visualize needle placement: Yes Ultrasound used to observe medication spread: Yes Injectate: 0.5% Ropivacaine (see comment for volume) (15cc+ 5cc nacl) Blood Aspirated: No Pain Paresthesia on Injection Noted: No Resistance on Injection: Normal Image Stored and Saved: Yes Events: Uneventful and Well Tolerated
--- NOTE | 2023-09-23 12:55 | P.ANPRN ---
Procedure Note - Anesthesia - Nerve Block Performed Right iPack Single Time Out Performed: Yes (1216) Date of Procedure: 09/23/23 Procedure Start Time: Procedure Stop Time: Location of Patient: PreOp Indication: Acute Post-Operative Pain, Requested by Surgeon Specifically requested for management of pain by DrTai: Musa Angeles Sedation Type: Sedate with meaningful contact maintained Preparation: Sterile Prep Position: Supine Catheter: None Needle Types: Pajunk Needle Gauge: 21 Ultrasound used to visualize needle placement: Yes Ultrasound used to observe medication spread: Yes Injectate: 0.5% Ropivacaine (see comment for volume) (15cc + 5cc nacl pf) Blood Aspirated: No Pain Paresthesia on Injection Noted: No Resistance on Injection: Normal Image Stored and Saved: Yes Events: Uneventful and Well Tolerated
[2023-09-23] MEDS ORDERED: HYDROmorphone 1 MG/ML 1 ML SYRINGE IVP PRN (13:14)
[2023-09-23] MEDS ORDERED: NALOXONE 0.4 MG/ML 1 ML VIAL IV PRN ×2 (13:14→15:04)
[2023-09-23] MEDS ORDERED: ceFAZolin 1,000 MG in SODIUM CHLORIDE 0.9% 1,000 ML IRRIGATION ONE (13:14)
[2023-09-23] MEDS ORDERED: NA PHOS,M-B/NA PHOS,DI-BA 133 ML ENEMA RECTAL PRN (13:14)
[2023-09-23] MEDS ORDERED: HYDROmorphone 0.5 MG/0.5 ML SYRINGE IVP PRN ×2 (13:14)
[2023-09-23] MEDS ORDERED: MAGNESIUM HYDROXIDE 2,400 MG/30 ML CUP PO PRN (13:14)
[2023-09-23] MEDS ORDERED: ONDANSETRON 4 MG/2 ML VIAL IVP PRN (13:14)
[2023-09-23] MEDS ORDERED: bisacodyL 10 MG SUPP RECTAL PRN (13:14)
[2023-09-23] MEDS ORDERED: LACTATED RINGERS 1,000 ML IV ONE (14:32)
--- NOTE | 2023-09-23 14:35 | P.OP ---
Date of Procedure: 09/23/23 Preoperative Diagnosis: Severe osteoarthritis right knee Postoperative Diagnosis: Severe osteoarthritis right knee Procedure(s) Performed: Right total knee arthroplasty Implants: Sánchez & Nephew Journey II CR Oxinium cruciate retaining femoral component size 7, right Sánchez & Nephew Journey nonporous tibial baseplate size 7, right Sánchez [employer] Nephew Journey II, XLPE Deep Dished articular insert, size 9 mm, Size 7- 8, right Sánchez [employer] Nephew Journey Tiffany II resurfacing patellar component, oval, 38 mm All components were cemented using Palacos R bone cement The articulation is Oxinium on polyethylene Anesthesia: SEDRICK Surgeon: Musa Angeles Costuming Supervisor #1: Denise aLnda Estimated Blood Loss (ml): 50 Pathology: none sent Condition: stable Disposition: PACU Indications for Procedure: The patient's knee is end-stage, and conservative management has failed. The operation of knee replacement has been discussed at length in the office, as well as potential risks and complications. These are inclusive of, but not l imited to: Infection, bleeding, scarring, discomfort, stiffness, blood vessel and nerve damage, need for further surgery, failure to relieve symptoms, persistence, recurrence, or worsening of problems, loosening, dislocation, wear, blood clot, pulmonary embolism, , gait dysfunction, stiffness, and other risks as discussed in the office. Patient elects to proceed and the consent form has been signed. Operative Findings: The operative findings are consistent with severe osteophyte arthritis of the right knee Description of Procedure: The patient was seen in the preoperative area, the consent was reviewed and the operative site was marked with a skin marker. The patient verified the procedure and the operative site. An adductor canal pain catheter and an iPACK block were placed by anesthesia in the preoperative area. The patient was then brought to the operating room and positioned on the operating room table in the supine position. Preoperative antibiotics and a gram of tranexamic acid were given intravenously. A general anesthetic was administered by the anesthesia department. Care was taken to make sure that all pressure points were adequately padded. A tourniquet was placed on the upper thigh and the lower extremity was prepped with ChloraPrep and draped in usual sterile fashion. A universal time-out was then performed which confirmed the patient's name, surgical site, ALLERGIES, and consent. The lower extremity was then exsanguinated and tourniquet was inflated to 250 mmHg. A standard anterior midline approach to the knee was performed. The skin and subcutaneous tissue were sharply dissected down to the patellar tendon. A medial parapatellar arthrotomy was then performed. The knee was then extended, the patellar was everted, and the knee was flexed. The infra-patellar fat pad was removed in order to enhance exposure. The anterior horns of both menisci were excised, and a release was performed to the posterior medial aspect of the knee. On gross visual inspection, there was complete loss of articular cartilage in the medial and patellofemoral joint spaces. There was also significant cartilage damage in the lateral compartment. There were multiple periarticular osteophytes globally about the knee which were then removed with a Ronguer. The femoral canal was then opened with the 9.5 mm intramedullary drill. The 8 mm intramedullary dewey was then inserted into the femoral canal with the distal femoral cutting guide set for 5 of valgus. The distal femoral cutting block was then pinned in place. The intramedullary dewey was then removed, and the distal femur was then cut. The cutting block was then removed and the cut was checked for symmetry. The resected bone was then measured to confirm the appropriate distal femoral resection. Next, the sizing guide was then placed and set for 3 external rotation based off of the epicondylar axis and Boni's line. Pins were then placed and the drill holes, and the femur was sized with the sizing stylus. The pins were then removed, and the sizing guide was then removed. The spikes of the appropriate size femoral block was then placed into the predrilled holes, and malleted into place. Two 45 mm pins were then placed into the fixation holes on the cutting block. An floyd wing was then used to ensure there would be no notching with the anterior cut. The anterior condyles were cut without notching. The anterior chord cut was then performed, followed by the posterior cut, posterior chamfer cut, and the anter ior chamfer cut. The collateral ligaments were protected during the entire process. The cutting block was then removed. Any remaining bone and osteophytes were removed from the femur with a Ronguer. Attention was then directed to the tibia. The remaining ACL was removed with a Ronguer, and the tibia was then gently subluxed forward with a large bent knee retractor. Any remaining menisci were excised. The posterior lateral corner was cauterized in order to coagulate the lateral geniculate artery. The extra medullary tibial cutting guide was then placed, set for the appropriate rotation, slope, and depth of resection. The proximal tibia cutting guide was then pinned in place. Proximal tibia was then cut and sized. A curved osteotome was then used to remove any posterior osteophytes from the distal femur. The femoral trial was placed. A narrow saw blade was then used to remove the anterior intracondylar femoral bone. The CR notch trial was then placed. The tibial trial was placed with the appropriate-sized insert. The knee was able to fully extend and flex to 130 and was stable throughout all range of motion. The knee was then extended and the patella was everted. Patella was then measured, and then using an osteotomy guide, the patella was cut at the appropriate level. The patellar component was sized. The patellar drill guide was placed and the patella was drilled. The patella trial was then placed. The knee was then taken through range of motion with the patella trial and the patella tracked normally using the no thumbs technique. The patella trial was then removed. The knee was then flexed and lug holes were drilled through the femoral trial and the femoral trial was then removed. The tibial was then re- exposed, and the tibial broach guide was then pinned in place after it was set for the appropriate rotation to allow for the most coverage without overhang. The tibia was then reamed and broached. The femoral canal was plugged with autologous bone. The cut surfaces of bone were then irrigated with pulsatile lavage. The knee was also irrigated with Irrisept solution. The components were then opened, the cement was mixed. Cement was placed on the backside of the femoral, tibial, and patellar components. Cement was then applied to the tibial surface and pressurized into the surface using finger pressurization technique. The tibial component was then applied and excess cement was removed after it was impacted securely noted to be flush with the cut surface. In similar fashion, the cement was applied to the cut femoral surface, pressurized and using finger pressurization the component was impacted in place. Excess cement was removed. The polyethylene spacer was then implanted and locked into position. Patellar component was then applied in a similar technique and the patellar clamp was used to hold patella in place while the cement hardened. The knee was held in full extension while the cement hardened. Once the cement had fully hardened, the knee was reinspected. Any other cement extrusion was removed the final range of motion testing showed range of motion from 0-130 with excellent stability, both medial and laterally and appropriate alignment of the leg. Patella tracked normally. After the cemented hardened, the tourniquet was released and hemostasis was obtained. A second gram of transexamic acid was given intravenously. The knee was again irrigated. The knee was again taken through range of motion and found to be stable throughout all range of motion of 0-130, and the patella tracked normally. The fascia was then closed with 0 Vicryl followed by #2 strata fix suture. The subcutaneous tissue was closed with 3-0 Vicryl and 3-0 strata fix. Exofin glue was used for the skin and placed with the knee in flexion. After the glue had dried, and Optafoam silver impregnated dressing was applied. A lightly compressive dressing was applied using web roll and Virgil wrap. Patient was then transferred to the stretcher and taken to recovery room in stable condition. Sponge and needle counts were correct. The plastic surgery assistant NOEMI Ashford was required due the complexity surgery and the need for a skilled salesperson surgical appliances. She assisted in positioning, draping, retraction, and closure of the wound.
[2023-09-23] MEDS ORDERED: HYDROmorphone PCA 10 MG/50 ML BAG IV PRN (15:04)
[2023-09-23] MEDS: HYDROmorphone 0.5 MG/0.5 ML SYRINGE IVP PRN ×4 (15:14→15:43)
[2023-09-23] MEDS ORDERED: ROPIVACAINE 1,100 MG, SODIUM CHLORIDE 0.9% 500 ML 330 ML, EMPTY PAIN BALL 1 EACH MISCELLANE PRN ×2 (15:15)
[2023-09-23] MEDS ORDERED: droPERidol 5 MG/2 ML VIAL IVP ONE (15:27)
--- NOTE | 2023-09-23 15:53 | XR ---
EXAMINATION TYPE: XR knee limited 2 views RT DATE OF EXAM: 09/23/2023 Comparison: None Clinical History: 62-year-old male Evaluation for Postop abnormality and alignment Findings: Images show placement of right total knee arthroplasty. Both distal femoral and proximal tibial compo nents of the prosthesis are well seated without periprosthetic fracture. Alignment grossly anatomic. Anterior soft tissue swelling with soft tissue air as well as intra-articular air related to recent o peration. Impression: Uncomplicated postoperative appearance right total knee arthroplasty.
[2023-09-23] MEDS ORDERED: FLUTICASONE 50MCG/SPRAY NASAL 16GM EA NOSTRIL PRN (17:09)
[2023-09-23] MEDS ORDERED: ALBUTEROL NEBULIZED 2.5 MG/3 ML INHALATION PRN (17:09)
--- NOTE | 2023-09-23 17:23 | P.CONS ---
History of Present Illness - Reason for Consult Consult date: 09/23/23 - History of Present Illness Patient is a 62-year-old male with history of hypertension, opiate dependence on Suboxone presenting for elective right total knee arthroplasty. [facility] has been consulted for medical management. Vital signs reviewed, within normal limits. Current glucose 104, no other labs available. Patient denies any chest pain, shortness of breath, abdominal pain, nausea, vomiting, urinary or bowel complaints. Pertinent positives and negatives as discussed in HPI, a complete review of systems was performed and all other systems are negative. Patient seen and examined at bedside. Vital signs reviewed General: nontoxic, no distress, appears at stated age Derm: warm, dry, dressing clean, dry, intact, multiple body tattoos Head: atraumatic, normocephalic, symmetric Eyes: EOMI, no lid lag, anicteric sclera, pupils equal round reactive to light ENT: Nose and ears atraumatic Neck: No thyromegaly, supple Mouth: no lip lesion, mucus membranes moist Cardiovascular: S1S2 reg, no murmur, no edema Lungs: clear to auscultation bilateral, no rhonchi, no rales, no wheeze, no accessory muscle use Abdominal: soft, nontender to palpation, no guarding, no appreciable orga nomegaly Ext: no gross muscle atrophy, muscle strength muscle strength 5 out of 5 in all 4 extremities, no contractures Neuro: CN II-XII grossly intact Psych: Alert, oriented, appropriate affect Assessment/Plan: Status post Right total knee arthroplasty Hypertension Opiate dependence on Suboxone -Continue home gabapentin -Rest of the pain management and bowel regimen per orthopedic surgery -Hold off using Suboxone given patient receiving opiates -DVT prophylaxis with aspirin 325 twice a day -Restarted rest of the home medications -CBC and BMP tomorrow -continue normal saline at 70 mL an hour, discontinue once oral intake improved Thank you for allowing us to participate in the care of this pleasant patient. Do not hesitate to contact us with questions. Someone can be reached from the [facility] hospitalist group all hours of the day at [phone] or via [employer]. Past Medical History Past Medical History: COPD, Deep Vein Thrombosis (DVT), Hearing Disorder / Deafness, Hypertension, Myocardial Infarction (CT), Musculoskeletal Disorder, Osteoarthritis (OA), Rheumatoid Arthritis (RA), Seizure Disorder, Sleep Apnea/CPAP/BIPAP Additional Past Medical History / Comment(s): "Seizure 05/24 after using cocaine and partying." CT per patient 30 yrs ago. HX BLOOD CLOT IN RT ARM AFTER A BEE STING 2017-took warfarin for short time, HX PRE-DIABETES IN 2008, RESOLVED WITH WEIGHT LOSS. RIGHT KNEE PAIN. TORN TENDONS IN BILATERAL SHOULDERS, JOINT SWELLING. CHRONIC BACK PAIN. USED CPAP IN PAST-no longer needs after being re- tested for sleep apnea, RLS, Ringing in ears. Last Myocardial Infarction Date:: 30 yrs ago History of Any Multi-Drug Resistant Organisms: None Reported Past Surgical History: Back Surgery, Heart Catheterization, Joint Replacement, Orthopedic Surgery, Tonsillectomy Additional Past Surgical History / Comment(s): CERVICAL FUSION X2 with bone stabilizers X8, plate and 3 screws in neck, lower back surgery, PAIN INJECTIONS IN BACK, COLONOSCOPY, left knee replacement, right shoulder surgery. Past Anesthesia/Blood Transfusion Reactions: No Reported Reaction Additional Past Anesthesia/Blood Transfusion Reaction / Comm: Difficult IV starts and blood draws. "Needs Anesthesia to start IV and draw blood work, need to use ultrasound to find veins". Smoking Status: Former smoker, Vaper - Past Family History Mother Family Medical History: No Reported History Father Additional Family Medical History / Comment(s): 2 stents. Medications and Allergies Home Medications Medication Instructions Recorded Confirmed Type Albuterol Inhaler [Ventolin Hfa 1 - 2 puff INHALATION Q6H PRN 06/07/19 09/23/23 History Inhaler] Fluticasone Nasal [place] [Flonase 2 spr EA NOSTRIL BID PRN 06/07/19 09/23/23 History Nasal [place]] Loratadine [Claritin] 10 mg PO DAILY 06/07/19 09/17/23 History Losartan Potassium [Cozaar] 100 mg PO DAILY 06/07/19 09/17/23 History Buprenorphine HCl/Naloxone HCl 1 each SL BID 08/29/22 09/23/23 History [Suboxone 12 mg-3 mg Sl Film] Tamsulosin HCl [Flomax] 2 cap PO DAILY 08/29/22 09/17/23 History Gabapentin 600 mg PO HS 08/21/23 09/23/23 History Gabapentin [Neurontin] 300 mg PO QAM 08/21/23 09/17/23 History Aspirin 325 mg PO BID #60 tab 09/23/23 Rx Sennosides [Senokot] 2 tab PO DAILY PRN #60 tablet 09/23/23 Rx Allergies Allergy/AdvReac Type Severity Reaction Status Date / Time Penicillins Allergy Rash/Hives Verified 09/23/23 11:30 Wasps Allergy Anaphylaxis Uncoded 09/23/23 11:30 Physical Exam Vitals: Vital Signs Temp Pulse Pulse Resp BP Pulse Ox 09/23/23 16:04 52 L 16 153/66 94 L 09/23/23 15:46 62 16 125/58 94 L 09/23/23 15:30 65 16 115/53 97 09/23/23 15:21 57 L 16 110/59 97 09/23/23 15:03 97.1 F L 56 L 16 128/84 97 09/23/23 12:39 57 L 14 112/57 98 09/23/23 12:30 56 L 16 109/59 97 09/23/23 11:34 97.6 F 67 18 105/49 96 Intake and Output 09/23/23 09/23/23 09/23/23 06:59 14:59 22:59 Intake Total 1251 0 Output Total 50 Balance 1201 0 Intake: IV 1251 0 Output: Estimated Blood Loss 50 Other: # Voids 0 Weight 105.7 kg
[2023-09-23] MEDS: ASPIRIN 325 MG TAB PO SCH (20:43)
[2023-09-23] MEDS ORDERED: GABAPENTIN 300 MG CAP PO SCH (21:00)
[2023-09-23] MEDS ORDERED: SENNOSIDES-DOCUSATE SODIUM 1 EACH TAB PO SCH (21:00)
[2023-09-23 21:16] VITALS: RESP 18
[2023-09-24] MEDS: LACTATED RINGERS 1,000 ML IV SCH (06:02)
[2023-09-24] MEDS: SODIUM CHLORIDE 0.9% 1,000 ML IV SCH ×2 (06:02→06:03)
--- NOTE | 2023-09-24 07:08 | P.PN ---
Progress Note - Text Progress Note Date: 09/24/23 (0701) Anesthesiology Postop day 1 status post total knee arthroplasty with adductor canal catheter. Patient doing well. VAS 9.5 out of 10patient states this is tolerable. Gross strength intact in lower extremity. Afebrile. Denies alterations in sensorium. Catheter site intact. Heart regular rate Lungs nonlabored Abdomen nondistended Assessment: Postop day 1 status post total knee arthroplasty with adductor canal catheter Plan: 1.All questions answered. Maintain catheter 2 more days with patient removal at home. Instructions to be given at discharge. 2.This note was dictated using BitPass software. Please be advised there is a potential for misspellings or errors in guide.
[2023-09-24 07:30] VITALS: BP 141/70; PULSE 72; TEMP 98
[2023-09-24] MEDS ORDERED: LOSARTAN 50 MG TAB PO SCH (09:00)
[2023-09-24] MEDS ORDERED: TAMSULOSIN 0.4 MG CAP.ER.24H PO SCH (09:00)
[2023-09-24] MEDS ORDERED: LORATADINE 10 MG TAB PO SCH (09:00)
[2023-09-24] MEDS ORDERED: MELOXICAM 7.5 MG TAB PO SCH (09:00)
[2023-09-24] MEDS ORDERED: GABAPENTIN 300 MG CAP PO SCH (09:00)
[2023-09-24 09:03] LABS: BUN/Creat Ratio 13.44 Ratio (12.00-20.00); Blood Urea Nitrogen 12.1 mg/dL (9.0-27.0); Calcium 8.8 mg/dL (8.7-10.3); Carbon Dioxide 24.4 mmol/L (21.6-31.8); Chloride 106 mmol/L (96-109); Glucose 108 mg/dL (70-110); Potassium 4.3 mmol/L (3.5-5.5); Sodium 139 mmol/L (135-145)
[2023-09-24] MEDS: ASPIRIN 325 MG TAB PO SCH (09:47)
--- NOTE | 2023-09-24 10:37 | P.DS ---
Providers Expected date of discharge: 09/24/23 Attending physician: Musa Angeles Consults: 09/23/23 13:14 Consult Physician Routine Consulting Provider: Genesis Johns Consult Reason/Comments: medical management Do you want consulting provider notified?: Yes Primary care physician: Rubin Morales MD - Discharge Diagnosis(es) (1) Osteoarthritis of right knee Current Visit: Yes Status: Acute (2) S/P total knee arthroplasty Current Visit: No Status: Acute Hospital Course: This is a 62-year-old male with known history of degenerative arthritis of the right knee. The patient presented for evaluation as an outpatient. After discussion and consideration patient elects to proceed with total knee arthroplasty. The patient is seen preoperatively by Dr. Angeles and medically cleared for surgery by their primary care physician. Patient is admitted to [facility] on 09/23/2023 for total knee arthroplasty. The procedure is performed without complication or sequelae. The patient is doing well postoperatively. Labs and vital signs are stable on day of discharge. On day of discharge patient's knee incision is healing well. There is minimal erythema. There is no drainage noted at this time. There is minimal soft tissue swelling to the knee. Patient has full foot and ankle motion without difficulty or pain. Calf is soft and nontender to palpation. Neurovascular status to the right lower extremity is intact. Patient is discharged home in good condition. Please see med rec for accurate list of home medications. Plan - Discharge Summary Discharge Rx Participant: No New Discharge Prescriptions: New Aspirin 325 mg PO BID #60 tab Sennosides [Senokot] 2 tab PO DAILY PRN #60 tablet PRN Reason: Constipation Continue Fluticasone Nasal [place] [Flonase Nasal [place]] 2 spr EA NOSTRIL BID PRN PRN Reason: ALLERGIES Losartan Potassium [Cozaar] 100 mg PO DAILY Loratadine [Claritin] 10 mg PO DAILY Albuterol Inhaler [Ventolin Hfa Inhaler] 1 - 2 puff INHALATION Q6H PRN PRN Reason: Shortness Of Breath Buprenorphine HCl/Naloxone HCl [Suboxone 12 mg-3 mg Sl Film] 1 each SL BID Gabapentin 600 mg PO HS Tamsulosin HCl [Flomax] 2 cap PO DAILY Gabapentin [Neurontin] 300 mg PO QAM Discharge Medication List Albuterol Inhaler [Ventolin Hfa Inhaler] 1 - 2 puff INHALATION Q6H PRN 06/07/19 [History] Fluticasone Nasal [place] [Flonase Nasal [place]] 2 spr EA NOSTRIL BID PRN 06/07/19 [History] Loratadine [Claritin] 10 mg PO DAILY 06/07/19 [History] Losartan Potassium [Cozaar] 100 mg PO DAILY 06/07/19 [History] Buprenorphine HCl/Naloxone HCl [Suboxone 12 mg-3 mg Sl Film] 1 each SL BID 08/29/22 [History] Tamsulosin HCl [Flomax] 2 cap PO DAILY 08/29/22 [History] Gabapentin 600 mg PO HS 08/21/23 [History] Gabapentin [Neurontin] 300 mg PO QAM 08/21/23 [History] Aspirin 325 mg PO BID #60 tab 09/23/23 [Rx] Sennosides [Senokot] 2 tab PO DAILY PRN #60 tablet 09/23/23 [Rx] Follow up Appointment(s)/Referral(s): Rubin Morales MD [Primary Care Provider] - 1 Week [facility] [NON-STAFF] - 1 Week (Call [facility] when you get home and they will deliver your CPM) [facility], [NON-STAFF] - 1 Week ([facility] will call you to arrange a visit) Musa Angeles DO [Doctor of Osteopathic Medicine] - 10/08/23 1:00 pm (With Denise) Activity/Diet/Wound Care/Special Instructions: Weightbearing as tolerated with a walker. CPM 5-6h daily as tolerated. Leave dressing intact. Dressing may be removed by home care nurse or by patient in 7 days. Then change dressing twice daily until follow up. May shower with initial dressing intact and after removal. If dressing become saturated, please remove. Recommend use of compression stockings daily until follow up to help prevent swelling and blood clots. May remove at night before sleeping. Please take aspirin 325mg twice daily for 30 days to prevent blood clots. Postop pain management per pain management physician. Please follow up with [facility] and call with any questions or concerns, . Discharge Disposition: HOME WITH HOME HEALTH SERVICES
--- NOTE | 2023-09-24 10:53 | P.PN ---
Subjective Progress Note Date: 09/24/23 Subjective: Patient seen and examined at bedside. No acute events overnight. Pertinent positives and negatives as discussed above, a complete review of systems was performed and all other systems are negative. Vitals Signs Reviewed. General: nontoxic, no distress, appears at stated age Derm: warm, dry, dressing clean, dry, intact, multiple body tattoos Head: atraumatic, normocephalic, symmetric Eyes: EOMI, no lid lag, anicteric sclera, pupils equal round reactive to light ENT: Nose and ears atraumatic Neck: No thyromegaly, supple Mouth: no lip lesion, mucus membranes moist Cardiovascular: S1S2 reg, no murmur, no edema Lungs: clear to auscultation bilateral, no rhonchi, no rales, no wheeze, no accessory muscle use Abdominal: soft, nontender to palpation, no guarding, no appreciable organomegaly Ext: no gross muscle atrophy, muscle strength muscle strength 5 out of 5 in all 4 extremities, no contractures Neuro: CN II-XII grossly intact Psych: Alert, oriented, appropriate affect Data Reviewed Today: Pertinent Labs: Sodium 139, creatinine 0.9, CBC ordered but not drawn. Imaging: No new imaging Assessment and Plan: Status post Right total knee arthroplasty Hypertension Opiate dependence on Suboxone -pain management and bowel regimen per orthopedic surgery -DVT prophylaxis with aspirin 325 twice a day -Home medications reviewed Patient is medically optimized for discharge home. Thank you for allowing us to participate in the care of this pleasant patient. Do not hesitate to contact us with questions. Someone can be reached from the [facility] hospitalist group all hours of the day at [phone] or via perfect serve. Objective - Vital Signs Vital signs: Vital Signs Temp 98.0 F 09/24/23 07:23 Pulse 72 09/24/23 07:23 Resp 18 09/24/23 07:23 BP 141/70 09/24/23 07:23 Pulse Ox 95 09/24/23 07:23 FiO2 Intake & Output 09/23/23 09/24/23 09/24/23 18:59 06:59 18:59 Intake Total 1251 Output Total 50 1400 Balance 1201 -1400 Weight 105.7 kg Intake: IV 1251 Output: Urine 1400 Estimated Blood Loss 50 Other: # Voids 0 1 - Labs CBC & Chem 7: 09/24/23 05:32
== END 2023-09-24 14:35 | disposition home health service (06) ==
LOC: OR 11:03 → 4SSUR 14:59 → OR 09-24 14:35
PROVIDERS: ATTEND Orthopaedic Surgery
DX: M17.11 Unilateral primary osteoarthritis, right knee (principal); G40.909 Epilepsy, unspecified, not intractable, without status epilepticus; F11.20 Opioid dependence, uncomplicated; J44.9 Chronic obstructive pulmonary disease, unspecified; M06.9 Rheumatoid arthritis, unspecified; G47.30 Sleep apnea, unspecified; I10 Essential (primary) hypertension; I25.2 Old myocardial infarction; Z79.82 Long term (current) use of aspirin; Z87.891 Personal history of nicotine dependence; Z88.0 Allergy status to penicillin; Z91.030 Bee allergy status; Z96.653 Presence of artificial knee joint, bilateral; Z86.718 Personal history of other venous thrombosis and embolism
CPT/HCPCS: 73560; 27447; J2250; J1100; J0690 ×2; J2405; J3010; J2795; J1170 ×2; J1790; 64448; 64999; 80048